=== PATIENT | male | born 1975 | race Caucasian/White ===

== ENCOUNTER 2019-02-03 19:40 | Observation (INO) | payer BC, SELFPAY ==
[2019-02-03 19:44] VITALS: BP 164/104; PULSE 104; RESP 20; TEMP 37.2; O2SAT 98
--- NOTE | 2019-02-03 20:19 | ED.GENADUL_ITS ---
Discharge Plan Disposition Patient Disposition: [facility] Condition: Good Discharge Details Chief Complaint: ThroatFB Clinical Impression: Esophageal foreign body Admit Date/Time: 02/04/19 00:30 Admit Provider: Casa Rojas Attending Provider: Casa Rojas Primary Care Provider: Misa Pfeiffer V ED [facility] Course: 43 y/o male who presented to the ED last night with an esophageal food impaction after eating steak. Patient underwent an EGD with clearance of the esophageal food impaction and GE junction biopsy. He was started on Carafate and Protonix. He notes a sore throat from the endoscopy and is able to tolerate a small amount of yogurt this am. He was able to take his pills with a larger pill crushed up this am. He has chloraseptic spray for his sore throat. Discharge Data Discharge Date/Time-TO BE ENTERED AT DEPARTURE: 02/03/19 22:26 Medical Decision Making Patient presenting to the emergency department for chief complaint of esophageal foreign body. Patient states that he was eating a piece of steak and swallowed abnormally. He then took a drink of water which seemed to lodged the steak further down in his neck. He states he is trying to drink more water, and milk and waited for 15 minutes and continued to have symptoms. This started approximately 1 hour prior to arrival. Physical exam shows no stridor, no drooling, patient does have continued vomiting and states that he feels fluid building up in his lower neck anytime he tries to drink anything. Patient has clear lung sounds, no coughing, otherwise unremarkable exam. Patient is not in any imminent airway distress, normal oxygenation. patient given soda to attempt to dislodge piece of meat which only caused further vomiting. Patient given given 1 mg of glucagon (initially ordered 2 mg but informed nurse to just give 1 mg ) and observed for clinical effect but if this does not take effect shortly plan to call general surgery for upper endoscopy. Patient observed for approximately 25 minutes and glucagon had no effect. Dr. Rojas was called to come and evaluate patient for need of urgent upper endoscopy given that patient cannot tolerate any p.o. intake without vomiting, stating that saliva continues to pull, and for continued discomfort in the lower neck. Patient's airway still remains intact, no stridor noted, patient able to still speak in full sentences and appropriate oxygenation. Patient was evaluated by Dr. Rojas and decision to take patient to OR for upper endoscopy was made. Patient was in agreement with this plan of care. Patient remained stable throughout emergency department stay. HPI General Mode of arrival: ambulatory . Date/Time Provider Initiated Documentation: 02/03/19 19:41 . Limitations to Documentation: no limitations . Information obtained by: patient, family and RN notes reviewed . History of Present Illness 43 year old M presents to the emergency department with the chief complaint of Esophageal foreign body, described as moderate, with intensity rated at 5. Quality is described as aching, and is localized to the neck. Patient started experiencing this hour(s) (1) and it has been constant. No relieving factors improve symptom(s), Patient notes no other symptoms.. Patient did receive the following treatments prior to arrival, none Related Data Home Medications Medication Instructions Recorded Confirmed ibuprofen 200 mg PO PRN 09/13/12 09/13/12 pantoprazole 40 mg PO DAILY@0730 #30 tab 02/04/19 phenol [Phenaseptic] 180 ml MUCOUS MEMBRANE QID PRN PRN 02/04/19 #0 ml sucralfate 1 g PO AC & HS #120 tab 02/04/19 Previous Rx's Medication Instructions Recorded pantoprazole 40 mg PO DAILY@0730 #30 tab 02/04/19 phenol [Phenaseptic] 180 ml MUCOUS MEMBRANE QID PRN PRN 02/04/19 #0 ml sucralfate 1 g PO AC & HS #120 tab 02/04/19 Allergies Allergy/AdvReac Type Severity Reaction Status Date / Time No Known Allergies Allergy Unverified 02/03/19 19:49 General Stated Complaint: ThroatFB WOJCIECH: 2 Review of Systems Constitutional Denies fever(s) ENT Reports as per HPI, Reports neck pain and Reports odynophagia Respiratory Denies cough, Denies stridor and Denies wheezing Gastrointestinal Reports odynophagia and Reports vomiting Musculoskeletal Reports neck pain Allergic/Immunologic Denies wheezing PFSH Surgical History (Updated 02/03/19 @ 21:59 by Casa Rojas MD) S/P foot surgery, right (Acute) Social History (Updated 02/03/19 @ 21:59 by Casa Rojas MD) Smoking/Tobacco Use Status: Current every day Alcohol Intake: current Alcohol Intake frequency: a few times a month Drug use: Never Substance use type: does not use Do you feel safe at home: Yes Do you feel safe in your relationship?: Yes Exam [facility] Head: normal to inspection Mouth: oral mucosae normal, lip normal, tongue normal, no drooling, muffled voice and no trismus Throat: posterior oropharynx normal, tonsils normal and uvula midline Neck Neck: normal visual inspection, full ROM, trachea midline, supple and no anterior neck swelling Resp Effort & Inspection: normal respiratory effort, able to speak in complete sen tences and no stridor Auscultation: clear to auscultation bilaterally Cardio Rate: regular rate Rhythm: regular rhythm Heart Sounds: S1 normal, S2 normal, no click, no gallops, no murmurs and no rubs Course Vital Signs Temperature 37.2 C 02/03/19 19:44 Pulse 104 H 02/03/19 19:44 Respiratory Rate 20 02/03/19 19:44 Blood Pressure 164/104 H 02/03/19 19:44 Pulse Oximetry 98 02/03/19 19:44 Temperature 37.2 C 02/03/19 19:44 Temperature Source Skin 02/03/19 19:44 Pulse 104 H 02/03/19 19:44 Respiratory Rate 20 02/03/19 19:44 Respiratory Effort 02/03/19 19:53 Blood Pressure 164/104 H 02/03/19 19:44 Blood Pressure Position Supine 02/03/19 19:44 Pulse Oximetry 98 02/03/19 19:44 Oxygen Delivery Method Room Air 02/03/19 19:44 Oxygen Flow Rate 0 02/03/19 19:44
[2019-02-03 20:23] VITALS: RESP 22; TEMP 36.6; O2SAT 96
[2019-02-03 20:50] VITALS: BP 161/111; PULSE 99; RESP 22; O2SAT 96
[2019-02-03 21:35] VITALS: BP 142/115; PULSE 103; RESP 22; TEMP 36.5; O2SAT 96
--- NOTE | 2019-02-03 21:49 | W.PM.HP.N ---
Date of service: 02/03/19 Time of Service: 21:49 Assessment and Plan (1) Esophageal obstruction due to food impaction: Current visit: Yes Status: Acute 43 y/o male with an esophageal food impaction from a piece of steak ingested ~ 1830 this evening. Patient unable to vomit or pass the piece of steak with fluids/ glucagon in the ED. Suspect that he has a stricture secondary to untreated GERD related to the impaction. Recommended proceeding with an EGD with possible biopsy, dilation, removal of foreign body (impacted food), and possible additional procedures. Risks, benefits, and alternatives discussed with patient and including but not limited to risks with anesthesia sedation, aspiration, bleeding, perforation, missed lesion, follow-up endoscopy, and possible additional procedures. All questions answered. Patient wishes to proceed. Recommended that he start on Carafate and/or a PPI post-endoscopy. Recommended that he stay on a liquid diet for 2-3 days post-endoscopy. See orders. History of Present Illness Chief Complaint: Esophageal food impaction/ foregin body Narrative: 43 y/o male seen with his at the bedside. Patient notes that he was eating dinner around 1830 tonight when he swallowed a piece of steak and felt it get stuck in his throat. He tried to drink milk and water to get it to pass but was not able to keep the liquids down and vomited. He has been spitting up his secretions as well. He was given glucagon in the ED without relief. He notes a history of occasional dysphagia over the last 3-4 years where food sometimes gets stuck but he has been able to wash it down before. He has never seen a physician for this, has not been on acid medication, and has never had an EGD. He denies any significant heartburn or reflux symptoms otherwise. There is a [facility] ovarian cancer on his mother's side of the family but no [facility] esophageal or GI cancer. Review of Systems Review of Systems All systems reviewed & are unremarkable except as noted in HPI and below ENT Reports dysphagia Cardiovascular Denies chest pain, Denies rapid heart rate and Denies dyspnea Respiratory Denies cough and Denies dyspnea Gastrointestinal Denies abdominal pain and Reports dysphagia PFSH Surgical History (Updated 02/03/19 @ 21:59 by Casa Rojas MD) S/P foot surgery, right (Acute) Social History (Updated 02/03/19 @ 21:59 by Casa Rojas MD) Smoking/Tobacco Use Status: Current every day Smokeless tobacco user: chewing tobacco Alcohol Intake: current Alcohol Intake frequency: a few times a month Drug use: Never Substance use type: does not use Do you feel safe at home: Yes Do you feel safe in your relationship?: Yes Meds Home Medications Medication Instructions Recorded Confirmed Type alum-mag hydroxide-simeth [Mag-Al 30 ml PO DIRECTED PRN #0 btl 09/13/12 Rx Plus] ibuprofen 200 mg PO PRN 09/13/12 09/13/12 History omeprazole 20 mg PO DAILY AM #20 tablet. 09/13/12 Rx Allergies Allergy/AdvReac Type Severity Reaction Status Date / Time No Known Allergies Allergy Unverified 02/03/19 19:49 Exam Const General: no acute distress and well developed Nutritional Appearance: well nourished Orientation: alert and oriented x3 HENMT Head: normocephalic and atraumatic Resp Effort & Inspection: normal respiratory effort and able to speak in complete sentences Cardio Jugular venous pressure: no JVD Rate: regular rate Rhythm: regular rhythm GI Inspection: non-distended Palpation: soft, not firm, no guarding, not rigid and nontender Skin General skin exam: no rashes or lesions noted and no jaundice Results Last Vital Signs Temp 36.5 C 02/03/19 21:35 Pulse 103 H 02/03/19 21:35 Resp 22 02/03/19 21:35 BP 142/115 H 02/03/19 21:35 Pulse Ox 96 02/03/19 21:35
[2019-02-03 22:02] LABS: Anion Gap 7.2 mmol/L (3-11); BUN 16 mg/dL (7-18); CO2 30.8 mmol/L (21.0-32.0); CREATININE 1.01 mg/dL (0.70-1.30); Calcium 9.9 mg/dL (8.5-10.1); Chloride 105 mmol/L (98-107); Glucose 97 mg/dL (70-100); Potassium 3.8 mmol/L (3.5-5.1); Sodium 143 mmol/L (136-145)
[2019-02-03 22:04] LABS: HCT 47.3 % (40.0-50.0); HGB 16.4 g/dL (13.5-17.5); Mean Corp. HGB Concentration 34.7 g/dL (32.0-36.0); Mean Corpuscular Hemoglobin 30.6 pg (27.0-33.0); Mean Corpuscular Volume 88.2 fL (80-95); Mean Platelet Volume 10.1 fL (8.0-11.0); Platelet Count 247 x1000/uL (130-400); RBC 5.36 m/cumm (4.50-6.00); RBC Distribution Width 12.7 % (11.8-14.1)
[2019-02-03] MEDS: Lactated Ringers 1,000 ML 150 ML IV (22:30)
[2019-02-03] MEDS: Glucagon 1 MG VIAL (22:58)
--- NOTE | 2019-02-03 23:59 | ESO_PTH ---
PATIENT: Carroll Howell LOC: [place] Muro#:[id number] AGE/SX: 43/M ROOM: RE02/04/[address]: Casa Rojas : 1975 BED: A DIS: 02/04/2019 SPEC #: [id number] RECD: 02/04/19 12:44 STATUS: SHELBY REQ #: [id number] MYRNA: 02/03/19 23:[address]: Casa Rojas DEPT: Surgical Specimen RECD BY: Maura Palacios ENTERED: 02/04/19 12:45 SP TYPE: Eso POPEYE DR: Misa Pfeiffer V Tissues: 1 - ESOPHAGUS BIOPSY Procedures: GROSS AND MICRO LEVEL 4 Comments: [id number]
[2019-02-04] VITALS (8 sets, daily range): BP systolic 134–174; BP diastolic 84–113; PULSE 85–97; RESP 14–22; TEMP 36–37.2; O2SAT 93–98
[2019-02-04] MEDS: Lactated Ringers 1,000 ML 150 ML IV (00:23)
--- NOTE | 2019-02-04 00:33 | W.PM.OP ---
Date of service: 02/04/19 Time of Service: 00:33 Operative Note DATE OF PROCEDURE: 02/03/19 PRE-OP DIAGNOSIS: Esophageal food impaction POST-OP DIAGNOSIS: same PROCEDURE: Esophagogastroduodenoscopy SURGEON: Casa Rojas ANESTHESIA: GETA ESTIMATED BLOOD LOSS: 1 PATHOLOGY: other (GE junction biopsy) COMPLICATIONS: None Patient was transported to: PACU Patient's condition: stable Indications: 43 y/o male with an esophageal food impaction after eating steak who presents for an EGD. Endoscopic procedure including risks, benefits, and alternatives were discussed with the patient and his and informed consent obtained prior to surgery. Findings: Edema of distal esophagus/ GE junction, r/o esophagitis; no obvious stricture or ulcers noted. Disimpacted steak partially retrieved and partially advanced into gastric lumen. Procedure Description: The patient was brought to the operating room and placed in the supine position. He was intubated and placed under general anesthesia. Time out performed per protocol. Olympus gastroscope was advanced under direct vision. There is pooling of saliva noted in the mid to upper esophagus. A large steak food bolus was impacted in the distal esophagus. This was removed in a piecemeal fashion with various graspers and biopsy forceps. One mg of glucagon IV was also administered during the procedure. After the majority of the food bolus had been extracted, the remainder was able to be advanced into the gastric lumen. Visualized stomach, duodenal bulb and second portion of the duodenum were unremarkable. The distal esophagus and GE junction where the food had been impacted were carefully examined. No ulceration or stricture noted. The mucosa was edematous and multiple random biopsies of the GE junction were obtained to r/o esophagitis. Patient tolerated the procedure well, was awakened from anesthesia, and transferred to recovery in satisfactory condition. He did have emesis and was carefully suctioned prior to extubation.
--- NOTE | 2019-02-04 00:54 | W.PM.DS.N ---
Date of service: 02/04/19 Time of Service: 09:45 DS: Diagnosis Discharge Diagnosis (1) Esophageal obstruction due to food impaction: Status: Acute Discharge Plan Disposition Patient Disposition: HOME Condition: Good Discharge Details Chief Complaint: ThroatFB Clinical Impression: Esophageal foreign body Reason For Visit: ESOPHAGEAL FOOD IMPACTION Admit Date/Time: 02/04/19 00:30 Admit Provider: Casa Rojas Attending Provider: Casa Rojas Primary Care Provider: Misa Pfeiffer V ED [facility] Course: 43 y/o male who presented to the ED last night with an esophageal food impaction after eating steak. Patient underwent an EGD with clearance of the esophageal food impaction and GE junction biopsy. He was started on Carafate and Protonix. He notes a sore throat from the endoscopy and is able to tolerate a small amount of yogurt this am. He was able to take his pills with a larger pill crushed up this am. He has chloraseptic spray for his sore throat. Home Meds and New Rx's Prescriptions: New sucralfate 1 gram Tablet 1 g PO AC & HS Qty: 120 RF: 0 pantoprazole 40 mg Tablet,Delayed Release (Dr/Ec) 40 mg PO DAILY@0730 Qty: 30 RF: 0 Phenaseptic 1.4 % Aerosol,[place] 180 ml mucous membrane QID PRN PRNQty: 0 RF: 0 Continued ibuprofen 200 MG tablet 200 mg PO PRNRF: 0 Discontinued omeprazole 20 MG tablet,delayed release (DR/EC) 20 mg PO DAILY AM Qty: 20 RF: 1 alum-mag hydroxide-simeth [Mag-Al Plus] 30 ML suspension 30 ml PO DIRECTED PRNQty: 0 RF: 0 Discharge Instructions Additional Instructions: May use Chloraseptic spray, salt water gargle, ice water for sore throat every 2-3 hours. Stay on a full liquid diet for 2-3 days and advance to a soft then regular diet as tolerated. Avoid bread or meat for 1-2 days. Drink protein shakes/ supplements for added nutrition while on liquid diet. Referrals: Juliette Mota MD [ [facility] STAFF PHYSICIAN] - (Follow-up with Dr. Lee or Andrew in 1 week re: esophageal biopsies.) Activity:: Activity as Tolerated Equipment/Supplies:: No Equipment Needed Diet:: Liquid diet x 2-3 days. Advance as tolerated. Discharge Orders Discharge Orders: Discharge Order (Routine); Ordered 02/04/19 Ordered By: Casa Rojas Exam Const General: cooperative, comfortable, no acute distress and well developed Nutritional Appearance: well nourished [facility] Head: normocephalic and atraumatic Resp Effort & Inspection: normal respiratory effort and able to speak in complete sentences Cardio Jugular venous pressure: no JVD Rate: regular rate Rhythm: regular rhythm GI Inspection: non-distended Palpation: soft and nontender DS: Data Vitals/I&O Vitals and I&O: Vital Signs Temperature 37.2 C 02/04/19 00:36 Temperature Source Temporal Artery Scan 02/03/19 21:35 Pulse 91 H 02/04/19 00:36 Respiratory Rate 16 02/04/19 00:36 Respiratory Effort 02/03/19 20:27 Respiratory Pattern Normal 02/03/19 20:27 Blood Pressure 134/84 02/04/19 00:36 Blood Pressure Position Supine 02/03/19 19:44 Pulse Oximetry 98 02/04/19 00:36 Respiratory End-tidal CO2 44 02/04/19 00:36 Oxygen Delivery Method Room Air 02/04/19 00:36 Oxygen Flow Rate 0 02/04/19 00:36 Pain Level 0 02/03/19 21:35 Intake & Output 02/03/19 02/03/19 02/04/19 11:59 23:59 11:59 Intake Total 1000 / 1000 Output Total 300 / 300 Balance -300 / -300 1000 / 1000 Weight 72.575 kg Intake: IV 1000 / 1000 Output: Urine 300 / 300 Other: Emesis Description Mucous Labs on day of discharge: Labs from last 24 hours 02/03/19 02/03/19 20:45 20:45 WBC 7.10 RBC 5.36 Hgb 16.4 Hct 47.3 MCV 88.2 MCH 30.6 MCHC 34.7 RDW 12.7 Plt Count 247 MPV 10.1 Sodium 143 Potassium 3.8 Chloride 105 Carbon Dioxide 30.8 Anion Gap 7.2 BUN 16 Creatinine 1.01 Estimated GFR/1.73 m2 >= 60.00 Glucose 97 Calcium 9.9 PFSH Surgical History (Updated 02/03/19 @ 21:59 by Casa Rojas MD) S/P foot surgery, right (Acute) Social History (Updated 02/03/19 @ 21:59 by Casa Rojas MD) Smoking/Tobacco Use Status: Current every day Smokeless tobacco user: chewing tobacco Alcohol Intake: current Alcohol Intake frequency: a few times a month Drug use: Never Substance use type: does not use Do you feel safe at home: Yes Do you feel safe in your relationship?: Yes
[2019-02-04] MEDS: Sucralfate 1 GM TAB PO (08:20)
[2019-02-04] MEDS: Pantoprazole 40 MG TABCR PO (08:21)
[2019-02-04] MEDS: Lactated Ringers 1,000 ML 75 ML IV (08:21)
--- NOTE | 2019-02-04 10:27 | PDOC.CMIN ---
Care Management Initial Assess REASON FOR HOSPITALIZATION:: esophageal obstruction due to food impaction PAST MEDICAL HISTORY/PAST SURGICAL HISTORY:: Medical: occasional dysphagia. Surgical: s/p foot surgery PREVIOUS FUNCTIONAL STATUS/SOCIAL/FAMILY SUPPORTS:: He is 43 yo man who lives with his Anne and his 18 yo son in their home in [place]. This is second marriage for both of them. They have guardianship of the 18 yo and are working with the school system to plan for his future. 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 He is usually active and independent. CURRENT FUNCTIONAL STATUS:: He is lying on stretcher in room when CM enters, waiting to go home. He easily engages in discussion re plans. ADVANCE DIRECTIVES:: Does not have and declines information. Has patient been provided with information about the portal?: Yes Did the patient sign up for the portal?: No CODE STATUS:: Full Code INSURANCE COVERAGE / FINANCIAL ISSUES:: BC Other CURRENT HOME/COMMUNITY SERVICES/EQUIPMENT:: No services or equipment used. PRIMARY CARE PHYSICIAN:: Misa Pfeiffer MD POTENTIAL DISCHARGE NEEDS:: Will need follow-up with surgeon as directed. PATIENT/FAMILY EDUCATION NEEDS:: Review d/c instructions re meds and activity levels, Ask me Now questions. ANTICIPATED BARRIERS TO DISCHARGE:: none identified TRANSPORTATION:: via car with Anne. PLAN:: d/c home as per , no services anticipated.
--- NOTE | 2019-02-04 11:00 | PDOC.CMDIS ---
LACE Index Scoring Tool - Questions: Length of Stay (in days): 1 Acuity (Admit via E.D.?): Yes E.D. Visits: 1 - Answers: Total Score: 5 Risk of Readmission: Low Risk Care Management Discharge Reason for Hospitalization: foreign body in esophagus, s/p removal Discharge Plan: He is being discharged home with planned follow-up with surgeon as directed. His is transporting him. Patient/Family Education Needs: RN to review d/c instructions re meds and activity levels. Ask me Now questions reviewed.
== END 2019-02-04 10:55 | disposition home or self-care (01) ==
LOC: ER 22:00 → SUR 22:26 → MS 02-04 01:17
PROVIDERS: Admitting Provider Surgery; Emergency Provider Nurse Practitioner Family; PCP Family Medicine; Visit Provider Surgery
PROC: 0DC68ZZ Extirpation of Matter from Stomach, Via Natural or Artificial Opening Endoscopic (ICD-10-PCS; CPT 43247; principal; 2019-02-03 22:00)
DX: T18.128A Food in esophagus causing other injury, initial encounter (principal); K22.2 Esophageal obstruction; K21.9 Gastro-esophageal reflux disease without esophagitis; F17.220 Nicotine dependence, chewing tobacco, uncomplicated
CPT/HCPCS: 43247; 43239; 36415; 80048; 85027; 88305; 96360; 96361; 99222; 99238; 99285; 99284; G0378; J1100; J1610; J2250

== ENCOUNTER 2019-03-18 17:02 | Outpatient (REF) | payer BC, SELFPAY ==
[2019-03-18 21:35] LABS: ALT 64 U/L (16-63); AST 30 U/L (15-37); Albumin 4.3 g/dL (3.4-5.0); Alkaline Phosphatase 102 U/L (46-116); Anion Gap 9.7 mmol/L (3-11); BUN 16 mg/dL (7-18); Bilirubin, Total 0.4 mg/dL (0.2-1.0); CO2 27.3 mmol/L (21.0-32.0); CREATININE 0.96 mg/dL (0.70-1.30); Chloride 105 mmol/L (98-107); Cholesterol 265 mg/dL (50-200); Glucose 104 mg/dL (70-100); HDL Cholesterol 40 mg/dL (40-60); Potassium 4.3 mmol/L (3.5-5.1); Sodium 142 mmol/L (136-145); Total Protein 7.2 g/dL (6.4-8.2); Triglyceride 561 mg/dL (30-150)
[2019-03-18 21:36] LABS: COMMENT (LAB VIEW ONLY) 292.18 mg/dL; Microalb ug/mg Crea 12.4 ug/mg Cr
[2019-03-18 22:37] LABS: LDL CHOLESTEROL 169 mg/dL (<100)
== END 2019-03-18 17:22 ==
LOC: NCHCN 17:02
PROVIDERS: PCP Family Medicine; Visit Provider Nurse Practitioner Family
DX: I10 Essential (primary) hypertension (principal); Z00.00 Encounter for general adult medical examination without abnormal findings
CPT/HCPCS: 80053; 80061; 83721; 82043; 82570

== ENCOUNTER 2022-07-22 15:43 | Outpatient (REF) | payer SELFPAY ==
[2022-07-22 15:22] LABS: ALT 123 U/L (16-63); AST 64 U/L (15-37); Albumin 4.7 g/dL (3.4-5.0); Alkaline Phosphatase 135 U/L (46-116); Anion Gap 11.7 mmol/L (3-11); BUN 9 mg/dL (7-18); Bilirubin, Total 0.6 mg/dL (0.2-1.0); CO2 27.3 mmol/L (21.0-32.0); CREATININE 0.9 mg/dL (0.70-1.30); Calcium 9.3 mg/dL (8.5-10.1); Chloride 101 mmol/L (98-107); Estimated GFR 107.33 (mL/min/1.73m2); Glucose 100 mg/dL (74-106); Potassium 3.8 mmol/L (3.5-5.1); Sodium 140 mmol/L (136-145); Total Protein 7.9 g/dL (6.4-8.2)
== END 2022-07-22 15:44 | disposition home or self-care (01) ==
LOC: LBN 15:43
PROVIDERS: PCP Family Medicine; Visit Provider Nurse Practitioner Family
DX: U07.1 COVID-19 (principal)
CPT/HCPCS: 80053; 87081